=== PATIENT | female | born 1995 | race African-American/Black ===

== ENCOUNTER 2017-04-25 05:44 | Emergency (ER) | payer BC ==
[2017-04-25] MEDS ORDERED: METHYLPREDNISOLONE INJ 125 MG/2 ML SDV IV ONE (06:36)
[2017-04-25] MEDS ORDERED: FAMOTIDINE INJ/PF 20 MG/2 ML SDV IV ONE (06:36)
[2017-04-25] MEDS ORDERED: DIPHENHYDRAMINE HCL 50 MG/ML VIAL IV ONE (06:36)
--- NOTE | 2017-04-25 06:39 | ER Document Report ---
ED ENT - General Chief Complaint: Sore Throat Stated Complaint: SORE THROAT Time Seen by Provider: 04/25/17 06:35 Notes: 21-year-old female to the emergency department complaining of difficulty swallowing. States she woke up with pain in her throat. Denies any fever, chills, sweats. Had this happen once before. Recently was started on metronidazole. Has been on it now for approximately 5 days. Noticed that she had swelling to the uvula with pain with swallowing. Last time she had that she was told that she had "strep throat". TRAVEL OUTSIDE OF THE [place] IN LAST 30 DAYS: No - HPI Onset: This morning Onset/Duration: Sudden Severity: Moderate Pain Level: 3 Location of pain: Throat Associated symptoms: Difficulty swallowing - Related Data Allergies/Adverse Reactions: berries Allergy (Uncoded 04/25/17 05:51) Past Medical History - General Information source: Patient - Social History Smoking Status: Never Smoker Chew tobacco use (# tins/day): No Frequency of alcohol use: None Drug Abuse: None Lives with: Family Family History: Reviewed & Not Pertinent Patient has suicidal ideation: No Patient has homicidal ideation: No - Past Medical History Cardiac Medical History: Reports: None Pulmonary Medical History: Reports: None Neurological Medical History: Reports: None Endocrine Medical History: Reports: None Renal/ Medical History: Denies: Hx Peritoneal Dialysis Malignancy Medical History: Reports: None GI Medical History: Reports: None Musculoskeltal Medical History: Reports None Skin Medical History: Reports None Psychiatric Medical History: Reports: None Review of Systems - Review of Systems Constitutional: denies: Fever, Malaise, Weakness EENT: Throat pain, Difficulty swallowing, Throat swelling. denies: Blurred vision, Double vision, Ear pain Respiratory: denies: Cough, Hurts to breathe, Short of breath, Wheezing Gastrointestinal: denies: Abdominal pain, Diarrhea, Nausea, Vomiting, Constipation Genitourinary: denies: Burning, Dysuria, Discharge Female Genitourinary: denies: , Heavy/abnormal periods, Irregular period , Vaginal bleeding, Vaginal odor Musculoskeletal: denies: Back pain, Gout, Joint pain Skin: denies: Dryness, Lesions, Rash Hematologic/Lymphatic: denies: Blood clots, Easy bleeding, Easy bruising Neurological/Psychological: denies: Confusion, Weakness, Headaches Physical Exam - Vital signs Vitals: Temp Pulse Resp BP Pulse Ox 98.6 F 108 H 18 145/80 H 100 04/25/17 05:49 04/25/17 05:49 04/25/17 05:49 04/25/17 05:49 04/25/17 05:49 Interpretation: Normal - General General appearance: Appears well, Alert Notes: Patient is sitting upright spitting into the emesis basin her saliva - HEENT Head: Normocephalic, Atraumatic Eyes: Normal Pupils: PERRL Pharynx: Uvular edema. No: Erythema, Exudate, Peritonsillar abscess - Respiratory Respiratory status: No respiratory distress Chest status: Nontender Breath sounds: Normal. No: Stridor, Wheezing Chest palpation: Normal - Cardiovascular Rhythm: Regular Heart sounds: Normal auscultation Murmur: No - Abdominal Inspection: Normal Distension: No distension Bowel sounds: Normal Tenderness: Nontender Organomegaly: No organomegaly - Back Back: Normal, Nontender - Extremities General upper extremity: Normal inspection, Nontender, Normal color, Normal ROM , Normal temperature General lower extremity: Normal inspection, Nontender, Normal color, Normal ROM , Normal temperature, Normal weight bearing. No: Mode's sign - Neurological Neuro grossly intact: Yes Cognition: Normal Orientation: AAOx4 [place] Coma Scale Eye Opening: Spontaneous [place] Coma Scale Verbal: Oriented [place] Coma Scale Motor: Obeys Commands [place] Coma Scale Total: 15 Speech: Normal Motor strength normal: LUE, RUE, LLE, RLE Sensory: Normal - Psychological Associated symptoms: Normal affect, Normal mood - Skin Skin Temperature: Warm Skin Moisture: Dry Skin Color: Normal Course - Re-evaluation Re-evalutation: 04/25/17 07:12 Patient has very obvious uvular edema. On metronidazole which could be causing an allergic reaction. Will start her on Solu-Medrol, Benadryl, Pepcid. Will get x-ray of the neck and reassess. 04/25/17 08:10 Uvula is now back to normal. Patient able to swallow. Will recommend that she stop the metronidazole. Will recommend that she continue with Benadryl every 6- 8 hours, Zantac twice a day. Will culture the throat. Patient does have large tonsils and adenoids but no evidence of abscess. Rapid strep negative. Will culture the throat. Patient advised regarding airway issues. Return for worsening symptoms or concerns. - Vital Signs Vital signs: Temp Pulse Resp BP Pulse Ox 98.6 F 108 H 18 145/80 H 100 04/25/17 05:49 04/25/17 05:49 04/25/17 05:49 04/25/17 05:49 04/25/17 05:49 Discharge - Discharge Clinical Impression: Uvular edema Condition: Good Disposition: HOME, SELF-CARE Instructions: Sore Throat ([facility]) Additional Instructions: It appears that your uvula (which is the small piece of tissue that dangles in the back of your throat) to swell. It could have been the medication that you have been taking recently. Please stop that immediately. It will be important that you take antihistamine such as Benadryl every 6-8 hours for the next few days. Continue to drink cool liquids such as ice water. You will also need to take some Pepcid or Zantac twice a day for the next few days. In the event that your throat culture returns positive we will call you a prescription but I do not feel compelled at this time to start you on antibiotics as this is more than likely a allergic type response. In the event that you begin to develop severe shortness of breath, you cannot swallow, your throat feels tight or you have severe pain again in the back of your throat please return immediately. Prescriptions: Diphenhydramine HCl [Benadryl 25 mg Capsule] 2 cap PO Q8H 5 Days #15 pkg Prednisone [Deltasone 20 mg Tablet] 3 tab PO DAILY 2 Days #6 tablet Ranitidine HCl [Zantac] 150 mg PO BID 7 Days #14 tablet
--- NOTE | 2017-04-25 07:29 | RADIOLOGY REPORT (SQ) ---
EXAM DESCRIPTION: SOFT TISSUE NECK COMPLETED DATE/TIME: 04/25/2017 7:16 am REASON FOR STUDY: hard to swallow COMPARISON: None. NUMBER OF VIEWS: Two views. TECHNIQUE: AP and lateral radiographic image of the soft tissues of the neck. LIMITATIONS: None. FINDINGS: EPIGLOTTIS: Contour normal. PREVERTEBRAL SOFT TISSUES: No soft tissue swelling. SUBGLOTTIC AREA: No narrowing. BONES: No significant findings. LUNG APICES: Clear. OTHER: There is enlargement of the adenoids and palatine tonsils. No radiopaque foreign body. IMPRESSION: Enlarged adenoids and palatine tonsils. TECHNICAL DOCUMENTATION: JOB ID: [id number] [employer]- All Rights Reserved
[2017-04-25 08:35] VITALS: BP 133/69
== END 2017-04-25 08:35 | disposition home or self-care (01) ==
LOC: ER 05:44
DX: R60.9 Edema, unspecified (principal); J02.9 Acute pharyngitis, unspecified
CPT/HCPCS: 99283; 96374; 96375; 87070; 87880; 87077; 70360; J1200; J2930; S0028

== ENCOUNTER 2017-05-21 09:25 | Emergency (ER) | payer OTHER, BC ==
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
[2017-05-21] MEDS ORDERED: OXYCODONE-ACETAMINOPHEN 5-325 MG TABLET PO ONE (12:31)
[2017-05-21 12:57] VITALS: BP 129/80
== END 2017-05-21 12:56 | disposition home or self-care (01) ==
LOC: ER 09:25
DX: S39.012A Strain of muscle, fascia and tendon of lower back, initial encounter (principal); M79.1 Myalgia; R07.9 Chest pain, unspecified; V49.60XA Unspecified car occupant injured in collision with unspecified motor vehicles in traffic accident, initial encounter; M41.9 Scoliosis, unspecified; Z91.018 Allergy to other foods; Z88.0 Allergy status to penicillin
CPT/HCPCS: 71046; 72070; 72110; 81025; 99284

== ENCOUNTER 2017-06-20 03:43 | Emergency (ER) | payer BC ==
[2017-06-20 03:58] VITALS: BP 133/80
[2017-06-20] MEDS ORDERED: DEXAMETHASONE SOD PHOS INJ 10 MG/1 ML VIAL IM ONE (04:46)
--- NOTE | 2017-06-20 04:53 | ER Document Report ---
ED General - General Chief Complaint: Sore Throat Stated Complaint: SORE THROAT Time Seen by Provider: 06/20/17 04:30 Notes: Patient is a very pleasant 22-year-old female presents with complaint of sore throat that started this morning. No cough. No fevers. No vomiting. No diarrhea. No difficulty breathing. She said she feels as if her uvula is escobar when she swallows she feels her tongue her uvula. All no neck swelling. No other complaints at this time. 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 TRAVEL OUTSIDE OF THE [place] IN LAST 30 DAYS: No - Related Data Allergies/Adverse Reactions: Penicillins Allergy (Verified 06/20/17 03:54) berries Allergy (Uncoded 04/25/17 05:51) CILLINS Allergy (Uncoded 05/21/17 09:26) Past Medical History - Social History Smoking Status: Never Smoker Chew tobacco use (# tins/day): No Frequency of alcohol use: None Drug Abuse: None Family History: Reviewed & Not Pertinent Patient has suicidal ideation: No Patient has homicidal ideation: No Renal/ Medical History: Denies: Hx Peritoneal Dialysis Review of Systems - Review of Systems Notes: My Normal Review Basic REVIEW OF SYSTEMS: CONSTITUTIONAL : No Fever EENT: Sore throat RESPIRATORY: Denies cough, cold, or chest congestion. Denies shortness of breath, difficulty breathing, or wheezing. GASTROINTESTINAL: Denies abdominal pain. Denies nausea, vomiting, or diarrhea. MUSCULOSKELETAL: No neck swelling SKIN: Denies rash or skin lesions. NEUROLOGICAL: Denies altered mental status or loss of consciousness. Denies headache. ALL OTHER SYSTEMS REVIEWED AND NEGATIVE. Physical Exam - Vital signs Vitals: Temp Pulse Resp BP Pulse Ox 99.1 F 85 18 133/80 H 97 06/20/17 03:57 06/20/17 03:57 06/20/17 03:57 06/20/17 03:57 06/20/17 03:57 - Notes Notes: General Appearance: Well nourished, alert, cooperative, no acute distress, no obvious discomfort. No stridor. Vitals: reviewed, See vital signs table. Head: no swelling or tenderness to the head Eyes: PERRL, EOMI, Conjuctiva clear Mouth: No decreasd moisture Throat: Patient has some slight erythema to the posterior pharynx. Uvula is a little bit enlarged. No exudates. No airway obstruction. Neck: Supple, no neck tenderness, No thyromegaly Lungs: No wheezing, No rales, No rhonci, No accessory muscle use, good air exchange bilaterally. Heart: Normal rate, Regular rythm, No murmur, no rub Skin: warm, dry, appropriate color, no rash Neuro: speech clear, oriented x 3, normal affect, responds appropriately to questions. Course - Re-evaluation Re-evalutation: 06/20/17 04:56 Patient has the beginnings of what appears to be a mild pharyngitis. Uvula is slightly enlarged. We will give a shot of Decadron this is most likely help with inflammation. There is no exudates. She does not have a fever. There is only minimal erythema. I think strep throat is unlikely. I informed her that her symptoms just started and therefore can be difficult sometimes to determine if this were going to be strep throat. I informed her that if we smaller at this time that most likely swab would be negative. Informed her that she should return to ER for evaluation in 1-2 days if she has worsening pain, increasing swelling, fevers, or feels unwell. Patient agrees with plan will be discharged home. Dictation of this chart was performed using voice recognition software; therefore, there may be some unintended grammatical errors. - Vital Signs Vital signs: Temp Pulse Resp BP Pulse Ox 99.1 F 85 18 133/80 H 97 06/20/17 03:57 06/20/17 03:57 06/20/17 03:57 06/20/17 03:57 06/20/17 03:57 Discharge - Discharge Clinical Impression: Pharyngitis Qualifiers: Pharyngitis/tonsillitis etiology: unspecified etiology Qualified Code(s): J02.9 - Acute pharyngitis, unspecified Condition: Good Disposition: HOME, SELF-CARE Additional Instructions: Please return to the ER immediately if you develop fevers, sensation that your throat is swelling, difficulty breathing, or if you feel that you are worsening. Forms: Return to Work
== END 2017-06-20 05:17 | disposition home or self-care (01) ==
LOC: ER 03:43
DX: J02.9 Acute pharyngitis, unspecified (principal); Z88.0 Allergy status to penicillin; Z91.018 Allergy to other foods
CPT/HCPCS: 99282; 96372; J1100

== ENCOUNTER 2018-04-28 06:07 | Emergency (ER) | payer BC ==
--- NOTE | 2018-04-28 07:16 | ER Document Report ---
ED ENT - General Chief Complaint: Sore Throat Stated Complaint: THROAT PAIN Time Seen by Provider: 04/28/18 07:08 Mode of Arrival: Ambulatory Information source: Patient Notes: 22-year-old female presents emergency department with complaints of sore throat that started this morning. 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 She states that her boyfriend has also had cold-like symptoms. She denies any fever, chills, rhinorrhea, cough, myalgias, fatigue, abdominal pain, nausea, vomiting. Patient only complains of pain with swallowing. She does not feel like her throat is swollen or closing. Patient states that she has had strep throat in the past. TRAVEL OUTSIDE OF THE [place] IN LAST 30 DAYS: No - HPI Patient complains to provider of: Throat problem Onset: Just prior to arrival Quality of pain: Dull Severity: Mild Location of pain: Throat Associated symptoms: None Similar symptoms previously: Yes Recently seen / treated by doctor: No - Related Data Allergies/Adverse Reactions: Penicillins Allergy (Verified 04/28/18 06:28) berries Allergy (Uncoded 04/25/17 05:51) CILLINS Allergy (Uncoded 05/21/17 09:26) Past Medical History - General Information source: Patient - Social History Smoking Status: Never Smoker Family History: Reviewed & Not Pertinent Patient has suicidal ideation: No Patient has homicidal ideation: No Renal/ Medical History: Denies: Hx Peritoneal Dialysis Review of Systems - Review of Systems Constitutional: No symptoms reported EENT: Throat pain Cardiovascular: No symptoms reported Respiratory: No symptoms reported Gastrointestinal: No symptoms reported Genitourinary: No symptoms reported Female Genitourinary: No symptoms reported Musculoskeletal: No symptoms reported Skin: No symptoms reported Hematologic/Lymphatic: No symptoms reported Neurological/Psychological: No symptoms reported -: Yes All other systems reviewed and negative Physical Exam - Vital signs Vitals: Temp Pulse Resp BP Pulse Ox 98.4 F 98 18 138/89 H 98 04/28/18 06:09 04/28/18 06:09 04/28/18 06:09 04/28/18 06:09 04/28/18 06:09 - Notes Notes: PHYSICAL EXAMINATION: GENERAL: Well-appearing, well-nourished and in no acute distress. HEAD: Atraumatic, normocephalic. EYES: Pupils equal round and reactive to light, extraocular movements intact, conjunctiva are normal. ENT: Nares patent, oropharynx erythematous without exudates. Moist mucous membranes. No peritonsillar bulging. No trismus. No uvula deviation. NECK: Normal range of motion, supple without lymphadenopathy LUNGS: Breath sounds clear to auscultation bilaterally and equal. No wheezes rales or rhonchi. HEART: Regular rate and rhythm without murmurs ABDOMEN: Soft, nontender, nondistended abdomen. No guarding, no rebound. No masses appreciated. Female : deferred Musculoskeletal: Normal range of motion, no pitting or edema. No cyanosis. NEUROLOGICAL: Cranial nerves grossly intact. Normal speech, normal gait. Normal sensory, motor exams PSYCH: Normal mood, normal affect. SKIN: Warm, Dry, normal turgor, no rashes or lesions noted. Course - Vital Signs Vital signs: Temp Pulse Resp BP Pulse Ox 98.4 F 98 18 138/89 H 98 04/28/18 06:09 04/28/18 06:09 04/28/18 06:09 04/28/18 06:09 04/28/18 06:09 Discharge - Discharge Clinical Impression: Pharyngitis Qualifiers: Pharyngitis/tonsillitis etiology: unspecified etiology Qualified Code(s): J02.9 - Acute pharyngitis, unspecified Condition: Stable Disposition: HOME, SELF-CARE Instructions: Sore Throat ([facility]) Forms: Return to Work Referrals: ROSIE GALLARDO MD [ACTIVE STAFF] - Follow up as needed
[2018-04-28 07:25] VITALS: BP 132/79
== END 2018-04-28 07:25 | disposition home or self-care (01) ==
LOC: ER 06:07
DX: J02.9 Acute pharyngitis, unspecified (principal); Z88.0 Allergy status to penicillin; Z91.018 Allergy to other foods
CPT/HCPCS: 87070; 87077; 87880; 99283

== ENCOUNTER 2018-08-19 05:28 | Emergency (ER) | payer BC ==
[2018-08-19 05:34] VITALS: BP 153/76
[2018-08-19] MEDS ORDERED: POLYMYXIN B SULFATE/TMP OPH SOLN (10 ML/ER DISP) OD PRN (06:27)
--- NOTE | 2018-08-19 06:35 | ER Document Report ---
ED General - General Chief Complaint: Eye Problem Stated Complaint: EYE PROBLEM Time Seen by Provider: 08/19/18 06:04 TRAVEL OUTSIDE OF THE [place] IN LAST 30 DAYS: No - HPI Notes: Patient is a 23-year-old female presents emergency department for evaluation of swelling and itching around her right eye. She states this started yesterday. She thought maybe she had gotten a bug bite. She states the swelling is gotten worse. There was a small amount of discharge her medial eye this morning. She has had some recent URI symptoms. She denies any visual changes. She states that her vision is slightly blurry after rubbing her eye, but this resolves. She denies any eye pain. No injury to the eye. She does not remember any specific bite. 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 - Related Data Allergies/Adverse Reactions: Penicillins Allergy (Verified 04/28/18 06:28) berries Allergy (Uncoded 04/25/17 05:51) CILLINS Allergy (Uncoded 05/21/17 09:26) Past Medical History - General Information source: Patient - Social History Smoking Status: Never Smoker Frequency of alcohol use: Social Drug Abuse: None Family History: Reviewed & Not Pertinent, Hypertension - Medical History Medical History: Negative Renal/ Medical History: Denies: Hx Peritoneal Dialysis Review of Systems - Review of Systems Constitutional: No symptoms reported EENT: See HPI Cardiovascular: No symptoms reported Respiratory: No symptoms reported Gastrointestinal: No symptoms reported Genitourinary: No symptoms reported Musculoskeletal: No symptoms reported Skin: No symptoms reported Neurological/Psychological: No symptoms reported Physical Exam - Vital signs Vitals: Temp Pulse Resp BP Pulse Ox 98.5 F 91 18 153/76 H 96 08/19/18 05:31 08/19/18 05:31 08/19/18 05:31 08/19/18 05:31 08/19/18 05:31 - Notes Notes: 23-year-old female appears her stated age, no acute distress. Head is norm ocephalic and atraumatic. She does have a very minimal amount of swelling in the periorbital region, particularly just inferior to the eye. No significant erythema or calor is noted. No tenderness. Pupils are equal, round, reactive to light. Extraocular muscles are intact. Scant amount of discharge is noted at the medial puncta. There is no conjunctival injection. Heart is regular rate and rhythm, lungs are clear to auscultation bilaterally. Skin is warm and dry. Course - Re-evaluation Re-evalutation: 08/19/18 06:33 Patient presents emergency department for evaluation. She is concerned that she may in fact have pinkeye. I explained to the patient that I do believe there is an allergic component, particularly given the itching of the area. She is urged to stop rubbing her eye. Because of her recent URI symptoms as well as her exposure to bacterial conjunctivitis in the daycare setting, we will go ahead and treat her with Polytrim. She is given her first dose here, dispense with the bottle. She is to use [id number] nonsedating antihistamines, warm compresses to the eye. She is to follow-up with her primary care physician this week. She is to return to the emergency department with worsening symptoms of any sort. - Vital Signs Vital signs: Temp Pulse Resp BP Pulse Ox 98.5 F 91 18 153/76 H 96 08/19/18 05:31 08/19/18 05:31 08/19/18 05:31 08/19/18 05:31 08/19/18 05:31 Discharge - Discharge Clinical Impression: Conjunctivitis Qualifiers: Conjunctivitis type: blepharoconjunctivitis Laterality: right Condition: Stable Disposition: HOME, SELF-CARE Instructions: Conjunctivitis ([facility]), Eyedrop Use ([facility]) Additional Instructions: Use eyedrops, 1 to 2 drops every 4-6 hours while awake for the next 5 days. Use [id number] antihistamines, such as Claritin, to help with itching. Avoid rubbing the eye. Follow-up with your doctor this week. Return to the emergency department with worsening or new concerning symptoms of any sort.
== END 2018-08-19 06:52 | disposition home or self-care (01) ==
LOC: ER 05:28
DX: H10.501 Unspecified blepharoconjunctivitis, right eye (principal)
CPT/HCPCS: 99283; J3490

== ENCOUNTER 2018-10-07 08:43 | Emergency (ER) | payer BC ==
[2018-10-07 08:48] VITALS: BP 146/73
[2018-10-07] MEDS ORDERED: ACETAMINOPHEN 325 MG TABLET PO ONE (10:06)
--- NOTE | 2018-10-07 10:10 | ER Document Report ---
HPI - HPI Patient complains to provider of: left ankle pain Time Seen by Provider: 10/07/18 10:05 Onset: Other - september 25 Quality of pain: Achy Severity: Mild Pain Level: 2 Context: Patient presents emergency department with complaints of left ankle pain. Reports she rolled her ankle on September 25. She has been walking without problems since she rolled her ankle. She reports the pain comes and goes. Patient is limping while she walks to the room. Reports she has not taken anything for pain. Denies all other symptoms such as fever vomiting diarrhea. I offered p atient Motrin for the pain but she requests Tylenol. 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 IN LAST 30 DAYS: No - HEENT HEENT: Atraumatic, Normocephalic - NECK Neck: Supple - RESPIRATORY Respiratory: No Respiratory Distress - CARDIOVASCULAR Cardiovascular: Regular Rate - MUSCULOSKELETAL/EXTREMETIES Musculoskeletal/Extremeties: MAEW, FROM, Non-Tender - reports left ankle medially ttp, no obvious deformity, erythema no swelling no warmth good pedal pulse - NEURO Level of Consciousness: Awake, Alert, Appropriate Motor/Sensory: No Motor Deficit - DERM Integumentary: Warm, Dry Adult Front & Back Diagram: 1 - Patient reports pain Course - Re-evaluation Re-evalutation: 10/07/18 10:37 Soft tissue swelling noted on x-ray. Patient updated on x-ray. Tono wrap placed. Patient requesting muscle relaxer because she feels like she sprained her ankle. Patient was instructed on the importance of follow-up with orthopedics for continued pain she verbalized understanding to all instructions. Ankle X-Ray 10/07/18 10:05 IMPRESSION: Mild soft tissue swelling about the ankle without evidence of acute bony abnormality. Dictation of this chart was performed using voice recognition software; therefore, there may be some unintended grammatical errors. - Vital Signs Vital signs: Temp Pulse Resp BP Pulse Ox 98.4 F 94 16 146/73 H 97 10/07/18 08:47 10/07/18 08:47 10/07/18 08:47 10/07/18 08:47 10/07/18 08:47 - Diagnostic Test Radiology reviewed: Image reviewed, Reports reviewed Procedures - Immobilization Left Ankle Pre-Proc Neuro Vasc Exam: Normal Immobilizer type: Tono wrap Performed by: PCT Post-Proc Neuro Vasc Exam: Unchanged from pre-exam Discharge - Discharge Clinical Impression: Left ankle pain Condition: Stable Disposition: HOME, SELF-CARE Instructions: Tono Wrap ([facility]), Use of [id number]-Hbh-Yszjrrx Ibuprofen ([facility]), Ice & Elevation ([facility]), Muscle Relaxers ([facility]) Additional Instructions: *You have been evaluated for an ankle injury *Rest/Ice/Elevate your ankle *Take medication as prescribed *Follow up with orthopedics within one week for continued pain-call for an appointment *Take medication as prescribed *Return to ED for worsening condition, changes, needs Monitor your blood pressure. Your blood pressure was elevated today. This may be because you were anxious, in pain or because you need medication. It is important to follow up with your primary care provider for full evaluation. Prescriptions: Cyclobenzaprine HCl [Flexeril 5 mg Tablet] 5 mg PO TID #15 tablet Forms: Elevated Blood Pressure, Return to Work
--- NOTE | 2018-10-07 10:34 | RADIOLOGY REPORT (SQ) ---
EXAM DESCRIPTION: ANKLE LEFT COMPLETE COMPLETED DATE/TIME: 10/07/2018 10:25 am REASON FOR STUDY: rolled ankle, pain COMPARISON: None. NUMBER OF VIEWS: Three views. TECHNIQUE: AP, lateral, and oblique radiographic images acquired of the left ankle. LIMITATIONS: None. FINDINGS: MINERALIZATION: Normal. BONES: No acute fracture or dislocation. No worrisome bone lesions. JOINTS: No effusions. SOFT TISSUES: Mild soft tissue swelling about the ankle. No foreign body. OTHER: No other significant finding. IMPRESSION: Mild soft tissue swelling about the ankle without evidence of acute bony abnormality. TECHNICAL DOCUMENTATION: JOB ID: [id number] [employer]- All Rights Reserved Reading location - IP/workstation name: [email or web address]
== END 2018-10-07 10:58 | disposition home or self-care (01) ==
LOC: ER 08:43
DX: M25.572 Pain in left ankle and joints of left foot (principal); X50.9XXA Other and unspecified overexertion or strenuous movements or postures, initial encounter; M79.89 Other specified soft tissue disorders
CPT/HCPCS: 99283

== ENCOUNTER 2018-11-06 19:23 | Emergency (ER) | payer BC ==
--- NOTE | 2018-11-06 21:11 | ER Document Report ---
HPI - HPI Time Seen by Provider: 11/06/18 20:33 Pain Level: 1 Context: Patient is a 23-year-old female who presents to the emergency department with a chief complaint of bug bites. Patient states that [place] September 25 [place] when she was bit multiple times to the lower left extremity. Patient reports that since then she has continued to have "knots," to her left leg. Patient states that she was seen by a physician in a few weeks ago for a left ankle sprain and still has mild swelling to the left ankle. Patient states she has not taken anything for the bug bites as they do itch. Patient denies redness to the bites or calf pain. 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 Patient denies fever. Patient has pain. - REPRODUCTIVE Reproductive: DENIES: : Past Medical History - General Information source: Patient - Social History Smoking Status: Unknown if Ever Smoked Frequency of alcohol use: None Drug Abuse: None Family History: Reviewed & Not Pertinent, Hypertension Patient has suicidal ideation: No Patient has homicidal ideation: No - Past Medical History Cardiac Medical History: Reports: None Pulmonary Medical History: Reports: None EENT Medical History: Reports: None Neurological Medical History: Reports: None Endocrine Medical History: Reports: None Renal/ Medical History: Reports: None. Denies: Hx Peritoneal Dialysis Malignancy Medical History: Reports: None GI Medical History: Reports: None Musculoskeletal Medical History: Reports None Skin Medical History: Reports None Psychiatric Medical History: Reports: None Traumatic Medical History: Reports: None Infectious Medical History: Reports: None Surgical Hx: Negative Vertical Provider Document - CONSTITUTIONAL Agree With Documented VS: Yes Exam Limitations: No Limitations General Appearance: No Apparent Distress - INFECTION CONTROL TRAVEL OUTSIDE OF THE [place] IN LAST 30 DAYS: No - HEENT HEENT: Atraumatic, Normocephalic, PERRLA - RESPIRATORY Respiratory: Breath Sounds Normal, No Respiratory Distress - CARDIOVASCULAR Cardiovascular: Regular Rate, Regular Rhythm - GI/ABDOMEN Gastrointestinal: Abdomen Soft, Abdomen Non-Tender - NEURO Level of Consciousness: Awake, Alert, Appropriate - DERM Integumentary: Warm, Dry, No Rash Adult Front & Back Diagram: 1 - Multiple small areas underneath that skin that appear firm, no erythema, no surrounding cellulitis, no calf swelling. Course - Re-evaluation Re-evalutation: 11/06/18 21:23 Upon initial assessment patient resting comfortably on stretcher no acute distress. Patient states that when she does get mosquito bites it takes him months to heal. Patient reports she was bit by multiple times by mosquito while at [facility] on September 25. Patient has not taken anything for the itching to the area. I did inform the patient to use an [id number]-obk-ekakpzu hydrocortisone cream. There is no surrounding cellulitis or indication for an antibiotic at this time. Patient denies calf pain or calf swelling. Patient states she recently was seen in an emergency department for a left ankle injury and was diagnosed with a sprain. Patient states she does have multiple bruise to the le ft lower extremity as this is normal for her as she bruises easily. I did inform the patient of strict return precautions - Vital Signs Vital signs: Temp Pulse Resp BP Pulse Ox 98.6 F 86 18 141/66 H 97 11/06/18 19:36 11/06/18 19:36 11/06/18 19:36 11/06/18 19:36 11/06/18 19:36 Discharge - Discharge Clinical Impression: Bites and stings, insect Qualifiers: Encounter type: initial encounter Qualified Code(s): W57.XXXA - Bitten or stung by nonvenomous insect and other nonvenomous arthropods, initial encounter Condition: Stable Disposition: HOME, SELF-CARE Additional Instructions: Today you were seen in the emergency department for possible insect bites to the lower left leg. There was some swelling noted to the left ankle in which he said that a few weeks ago you did sprain your ankle and was seen in the emergency department for this. Please use najv-mke-yhqwwpr hydrocortisone cream for the itching to her left lower leg and watch out for signs and symptoms of infection to include redness, calf swelling or calf pain or any other concerning signs or symptoms. Insect Bites You have been bitten by an insect. These bites can cause two types of swelling: an initial swelling due to insect saliva or injected poison, and a late reaction due to your body's allergic reaction. This initial local reaction may be uncomfortable but is not dangerous. Often there's an itchy "hive" at the bite location. This is treated with antihistamines, cold compresses, and resting the affected body part. The later reaction often develops about the second day. The entire area becomes very swollen, red, itchy, and tender. This is an allergic reaction. Your body is attacking the leftover insect saliva or venom. This type of allergy is unpleasant, but not dangerous. We treat this swelling with cortisone-type medicine. Sometimes we use antibiotics if we're worried about infection. Antihistamines help with the itch. If you develop a fever, chills, a red streak, or swollen glands in the area of the bite, infection may be starting. Return at once.
[2018-11-06 21:21] VITALS: BP 144/88
== END 2018-11-06 21:22 | disposition home or self-care (01) ==
LOC: ER 19:23
DX: S80.862A Insect bite (nonvenomous), left lower leg, initial encounter (principal); W57.XXXA Bitten or stung by nonvenomous insect and other nonvenomous arthropods, initial encounter; Y92.831 Amusement park as the place of occurrence of the external cause